=== PATIENT | male | born 1970 | race Caucasian/White ===

== ENCOUNTER 2017-03-04 20:22 | Emergency (ER) | payer SELFPAY ==
[~2017-03-04 20:22] MED LIST: ALPR0.25 PO; ASPI-252 PO; ATOR20TA PO; ATOR40TA PO; Aspirin PO; BISA-42 PO; CELE200C PO; CLOP75TA27 PO; ESOM40CA PO; FENO134C PO; FENO54TA6 PO; GABA-586 PO; LISI10TA2 PO; LISI5TAB PO; Metoprolol Tartrate PO; NAPR220T70 PO; NIAC500T PO; OXYC-250 PO; VARE1TAB5 PO
[2017-03-04 20:34] VITALS: BP 125/82
--- NOTE | 2017-03-04 21:15 | PHYS DOC ---
Past Medical History Past Medical History: Arthritis, CAD, Hypertension, [place] Additional Past Medical Histor: chronic back pain Past Surgical History: Other Additional Past Surgical Histo: back, shoulder, knee Alcohol Use: Rarely Drug Use: None Adult General Chief Complaint Chief Complaint: LOWER BACK PAIN OR INJURY [facility] HPI Patient is a 46 year old male presents to the emergency department stating that he has a history of chronic back pain. He states that today he had attempted to move measured 5 different times with a push mower. Patient states that he has having left lower back pain that radiates over into the hip area. He denies any falls trauma or injuries. He denies any loss of bowel or bladder. Patient states that he is unable to stand effectively or ambulate well with the pain and discomfort. Patient states he has not taken any pain medications today. He states that he has ibuprofen at home although he has had a history of kidney issues and has been taking that very sparingly. Review of Systems Review of Systems Constitutional: Denies fever or chills [] Eyes: Denies change in visual acuity, redness, or eye pain [] HENT: Denies nasal congestion or sore throat [] Respiratory: Denies cough or shortness of breath [] Cardiovascular: No additional information not addressed in HPI [] GI: Denies abdominal pain, nausea, vomiting, bloody stools or diarrhea [] : Denies dysuria or hematuria [] Musculoskeletal: Left lower back pain that radiates into the left hip Integument: Denies rash or skin lesions [] Neurologic: Denies headache, focal weakness or sensory changes [] Current Medications Current Medications Current Medications Medications (Trade) Dose Ordered Sig/[facility] Start Time Stop Time Status Last Admin Dose Admin Fentanyl Citrate (Fentanyl 2ml Vial) 75 mcg 1X ONCE 03/04/17 21:30 03/04/17 21:31 DC 03/04/17 21:32 75 MCG Methylprednisolone Sodium Succinate (Solu-Medrol 125mg Vial) 125 mg 1X ONCE 03/04/17 21:30 03/04/17 21:31 DC 03/04/17 21:34 125 MG Orphenadrine Citrate (Norflex) 60 mg 1X ONCE 03/04/17 21:30 03/04/17 21:31 DC 03/04/17 21:33 60 MG Allergies Allergies Allergies Coded Allergies Type Severity Reaction Last Updated Verified amitriptyline Allergy Severe Anaphylaxis 09/10/14 Yes meperidine Allergy Severe 09/10/14 Yes morphine Allergy Severe Swelling 09/10/14 Yes venom-honey bee Allergy Severe Anaphylaxis 09/10/14 Yes Physical Exam Physical Exam Constitutional: Well developed, well nourished, no acute distress, non-toxic appearance. [] HENT: Normocephalic, atraumatic, bilateral external ears normal, oropharynx moist, no oral exudates, nose normal. [] Eyes: PERRLA, EOMI, conjunctiva normal, no discharge. [] Neck: Normal range of motion, no tenderness, supple, no stridor. [] Cardiovascular:Heart rate regular rhythm, no murmur [] Lungs & Thorax: Bilateral breath sounds clear to auscultation [] Skin: Warm, dry, no erythema, no rash. [] Back: No thoracic or lumbar spine tenderness, no crepitus or deformities or step -offs noted. Patient did have tenderness down to the sacral area as well as over to the paraspinal area there. Patient was very tender on the left lower back area over into the left hip. Patient was able to passively bring his leg up with minimal discomfort noted. Peripheral pulses are 2+ cap refill brisk less than 2 seconds. Extremities: No tenderness, no cyanosis, no clubbing, ROM intact, no edema. [] Neurologic: Alert and oriented X 3, normal motor function, normal sensory function, no focal deficits noted. [] Psychologic: Affect normal, judgement normal, mood normal. [] Current Patient Data Vital Signs Vital Signs Date Time Temp Pulse Resp B/P Pulse Ox O2 Delivery O2 Flow Rate FiO2 03/04/17 20:34 97.7 80 20 125/82 97 Room Air 97.7 EKG EKG [] Radiology/Procedures Radiology/Procedures [] Course & Med Decision Making Course & Med Decision Making Pertinent Labs and Imaging studies reviewed. (See chart for details) She was provided with Solu-Medrol, and fentanyl and Norflex for pain and discomfort. Patient is able to turn himself in the bed easier then upon assessment. Patient was encouraged to follow-up with primary care or his normal back doctor. Patient states that he does not have insurance will provide him to follow-up with the specific the physicians. Recommended patient to have follow- up with pain management. Patient states that he falls to the proximal with having follow-up with any physician. Patient will be provided with hydrocodone at discharge he will be provided with prednisone. We'll also provide the patient with Flexeril. Also recommended packs on 20 minutes off 20 minutes several times a day. Also recommended follow up as mentioned. Since symptoms to return back to emergency department as been provided. Patient agrees with discharge instructions, treatment regimens and follow-up recommendations.. [] Dragon Disclaimer Dragon Disclaimer This electronic medical record was generated, in whole or in part, using a voice recognition dictation system. Departure Departure Impression: Primary Impression: Back pain Disposition: HOME, SELF-CARE Condition: STABLE Referrals: NO PCP (PCP) Patient Instructions: Back Pain, Adult, [id number] Additional Instructions: Activity as tolerated. Medications as prescribed. Hydrocodone will cause drowsiness do not take any be alert and oriented. Flexeril will also cause drowsiness do not take any be alert and oriented. Ice packs on 20 minutes off 20 minutes several times a day. Follow-up with her primary care physician in 3-5 days. Return back to emergency prior signs symptoms of become worse. Scripts Cyclobenzaprine Hcl 10 Mg Tablet1 Tab PO TID PRN PAIN #30 TAB Prov:BASIA DOMINIQUE [employer] INSPECTOR 03/04/17 Prednisone 20 Mg [id number] Mg PO DAILY #10 TAB Prov:BASIA DOMINIQUE APRN 03/04/17 Hydrocodone/Apap 5-325 ([place] 5-325 Tablet)1 Each Tablet1 Tab PO PRN Q6HRS PRN PAIN #20 TAB Prov:BASIA DOMINIQUE APRN 03/04/17 BASIA DOMINIQUE APRN Mar 04, 2017 21:15
[2017-03-04] MEDS ORDERED: FENTANYL PF 100 MCG/2 ML VIAL. IM ONE (21:30)
[2017-03-04] MEDS ORDERED: ORPHENADRINE CITRATE 60 MG/2 ML VIAL. IM ONE (21:30)
[2017-03-04] MEDS ORDERED: methylPREDNISolone SOD SUCC PF 125 MG/2 ML VIAL. IM ONE (21:30)
[2017-03-04] MEDS ORDERED: CYCL10TA2 PO (22:13)
[2017-03-04] MEDS ORDERED: HYDR-971 PO (22:13)
[2017-03-04] MEDS ORDERED: PRED20TA PO (22:13)
== END 2017-03-04 22:31 | disposition home or self-care (01) ==
LOC: ER 20:22
DX: M54.5 Low back pain (principal); M19.90 Unspecified osteoarthritis, unspecified site; I25.10 Atherosclerotic heart disease of native coronary artery without angina pectoris; I10 Essential (primary) hypertension; I25.2 Old myocardial infarction; G89.29 Other chronic pain; Z88.5 Allergy status to narcotic agent; Z91.030 Bee allergy status; Z88.8 Allergy status to other drugs, medicaments and biological substances
CPT/HCPCS: 96372; 99284; J2360; J2930; J3010

== ENCOUNTER 2020-08-13 15:27 | Observation (INO) | payer SELFPAY ==
[~2020-08-13] VITALS: Ht 188 cm; Wt 122.8 kg
[~2020-08-13 15:27] MED LIST changes: -CLOP75TA27 PO; +CLOP75TA57 PO; +CYCL10TA2 PO; -GABA-586 PO; +GABA300C18 PO; +HYDR-3164 PO; -OXYC-250 PO; +OXYC1TAB22 PO; +PRED20TA PO
--- NOTE | 2020-08-13 16:00 | EKG ---
[facility] [address] [place] [address] Test Date: 2020-08-13 Test Time: 15:37:07 Pat Name: SUMAN CACERES Department: Room: Gender: M [employer]: : 1970 Requested By: DHARA MARK Order Number: [id number] Reading MD: Measurements Intervals [place] Rate: 68 P: 27 RI: 164 QRS: -26 QRSD: 110 T: 13 QT: 380 QTc: 409 Interpretive Statements SINUS RHYTHM LEFTWARD AXIS R-S TRANSITION ZONE IN V LEADS DISPLACED TO THE LEFT OTHERWISE NORMAL ECG RI6.02 No previous ECG available for comparison
--- NOTE | 2020-08-13 16:05 | RAD ---
PORTABLE CHEST 1V History: Chest pain Comparison: July 27, 2016 Findings: Single view of the chest is submitted. Pericardial cardiac silhouette is stable, borderline enlarged. There is no dependent pleural fluid, pneumothorax, or infiltrate. There is some right hilar fullness although fairly similar comparing with 2015 exam. Impression: 1. There is no infiltrate or pleural fluid. Electronically signed by: Jayce Biggs MD (08/13/2020 4:02 PM) [id number]
[2020-08-13 16:14] LABS: BASO % 0 % (0-3); EOS # 0.2 x10^3/uL (0.0-0.7); EOS % 5 % (0-3); HEMATOCRIT 35.5 % (39.0-53.0); HEMOGLOBIN 12.1 g/dL (13.0-17.5); LYMPH # 1.2 x10^3/uL (1.0-4.8); LYMPH % 33 % (24-48); MEAN CORPUSCULAR HEMOGLOBIN 33 pg (25-35); MEAN CORPUSCULAR HGB CONC 34 g/dL (31-37); MEAN CORPUSCULAR VOLUME 96 fL (79-100); MONO # 0.4 x10^3/uL (0.0-1.1); MONO % 10 % (0-9); NEUT % 52 % (31-73); PLATELET COUNT 148 x10^3/uL (140-400); RED BLOOD COUNT 3.69 x10^6/uL (4.30-5.70); RED CELL DISTRIBUTION WIDTH 15.6 % (11.5-14.5); WHITE BLOOD COUNT 3.8 x10^3/uL (4.0-11.0)
[2020-08-13 16:26] LABS: CALCIUM 8.5 mg/dL (8.5-10.1); CREATININE 1.5 mg/dL (0.7-1.3); GFR 49.3; POTASSIUM 4.6 mmol/L (3.5-5.1)
[2020-08-13 16:34] LABS: ALBUMIN 3.6 g/dL (3.4-5.0); ALBUMIN/GLOBULIN RATIO 1.3 (1.0-1.7); MAGNESIUM 1.7 mg/dL (1.8-2.4); TOTAL BILIRUBIN 0.4 mg/dL (0.2-1.0); TOTAL PROTEIN 6.4 g/dL (6.4-8.2)
--- NOTE | 2020-08-13 17:39 | PHYS DOC ---
Past Medical History Past Medical History: Arthritis, CAD, Hypertension, [place], Other Additional Past Medical Histor: chronic back pain, CHRONIC SHOULDER PAIN, BURSITIS Past Surgical History: Cholecystectomy, Coronary Bypass Surgery, Other Additional Past Surgical Histo: 'STENT X7',R SHOULDER,LAMINECTOMY L5-S1,R KNEE Smoking Status: Current Every Day Smoker Alcohol Use: Occasionally Additional Information: '2-3 WHISKY DRINKS A NIGHT' Drug Use: None General Adult EDM: Chief Complaint: CHEST PAIN-CARDIAC NATURE HPI: HPI: 50 yo M has medical history of CAD, (reports [address] Deal), htn, hyperlipidemia, COPD and tobacco dependence, on Plavix, presents to the ED with complaints of " feeling in the middle of my chest," described as a cold pressure sensation, for the past week with associated stomach bloating and weight gain of 12 pounds. Patient states he has had multiple heart attacks that usually present like this early on and was advised to come to ed if sxs reoccur. Does not take aspirin of cholesterol medications. No history of DVT or PE. Did not take any nitro. Review of Systems: Review of Systems: Constitutional: Denies fever or chills. [] Eyes: Denies change in visual acuity. [] HENT: Denies nasal congestion or sore throat. [] Respiratory: Denies cough or shortness of breath. [] Cardiovascular: Denies syncope or hemoptysis or edema. [] GI: Denies abdominal pain, nausea, vomiting, bloody stools or diarrhea. [] : Denies dysuria. [] Musculoskeletal: Denies back pain or joint pain. [] Integument: Denies rash. [] Neurologic: Denies headache, focal weakness or sensory changes. [] Endocrine: Denies polyuria or polydipsia. [] Lymphatic: Denies swollen glands. [] Psychiatric: Denies depression or anxiety. [] Heart Score: HEART Score for Chest Pain: HEART Score for Chest Pain Response (Comments) Value History Slighlty/Non-Suspicious 0 ECG Nonspecific Repolarizatio 1 Age >45 - < 65 1 Risk Factors >3 Risk Factors or Hx CAD 2 Troponin < Normal Limit 0 Total 4 Risk Factors: Risk Factors: DM, Current or recent (<one month) smoker, HTN, HLP, family history of CAD, obesity. Risk Scores: Score 0 - 3: 2.5% MACE over next 6 weeks - Discharge Home Score 4 - 6: 20.3% MACE over next 6 weeks - Admit for Clinical Observation Score 7 - 10: 72.7% MACE over next 6 weeks - Early Invasive Strategies Allergies: Allergies: Allergies Coded Allergies Type Severity Reaction Last Updated Verified amitriptyline Allergy Severe Anaphylaxis 09/10/14 Yes meperidine Allergy Severe 09/10/14 Yes morphine Allergy Severe Swelling 09/10/14 Yes venom-honey bee Allergy Severe Anaphylaxis 09/10/14 Yes Physical Exam: PE: Constitutional: Well developed, well nourished, no acute distress, non-toxic appearance. [] HENT: Normocephalic, atraumatic, bilateral external ears normal, oropharynx moist, no oral exudates, nose normal. [] Eyes: PERRLA, EOMI, conjunctiva normal, no discharge. [] Neck: Normal range of motion, no tenderness, supple, no stridor. [] Cardiovascular:Heart rate regular rhythm, no murmur [] Lungs & Thorax: Bilateral breath sounds clear to auscultation [] Abdomen: Bowel sounds normal, soft, no tenderness, no masses, no pulsatile masses. [] Skin: Warm, dry, no erythema, no rash. [] Back: No tenderness, no CVA tenderness. [] Extremities: No tenderness, no cyanosis, no clubbing, ROM intact, no edema. [] Neurologic: Alert and oriented X 3, normal motor function, normal sensory function, no focal deficits noted. [] Psychologic: Affect normal, judgement normal, mood normal. [] Current Patient Data: Labs: Laboratory Tests Test 08/13/20 16:10 White Blood Count 3.8 x10^3/uL (4.0-11.0) L Red Blood Count 3.69 x10^6/uL (4.30-5.70) L Hemoglobin 12.1 g/dL (13.0-17.5) L Hematocrit 35.5 % (39.0-53.0) L Mean Corpuscular Volume 96 fL (79-100) Mean Corpuscular Hemoglobin 33 pg (25-35) Mean Corpuscular Hemoglobin Concent 34 g/dL (31-37) Red Cell Distribution Width 15.6 % (11.5-14.5) H Platelet Count 148 x10^3/uL (140-400) Neutrophils (%) (Auto) 52 % (31-73) Lymphocytes (%) (Auto) 33 % (24-48) Monocytes (%) (Auto) 10 % (0-9) H Eosinophils (%) (Auto) 5 % (0-3) H Basophils (%) (Auto) 0 % (0-3) Neutrophils # (Auto) 2.0 x10^3/uL (1.8-7.7) Lymphocytes # (Auto) 1.2 x10^3/uL (1.0-4.8) Monocytes # (Auto) 0.4 x10^3/uL (0.0-1.1) Eosinophils # (Auto) 0.2 x10^3/uL (0.0-0.7) Basophils # (Auto) 0.0 x10^3/uL (0.0-0.2) Sodium Level 137 mmol/L (136-145) Potassium Level 4.6 mmol/L (3.5-5.1) Chloride Level 102 mmol/L (98-107) Carbon Dioxide Level 28 mmol/L (21-32) Anion Gap 7 (6-14) Blood Urea Nitrogen 17 mg/dL (8-26) Creatinine 1.5 mg/dL (0.7-1.3) H Estimated GFR (Cockcroft-Gault) 49.3 BUN/Creatinine Ratio 11 (6-20) Glucose Level 99 mg/dL (70-99) Calcium Level 8.5 mg/dL (8.5-10.1) Magnesium Level 1.7 mg/dL (1.8-2.4) L Total Bilirubin 0.4 mg/dL (0.2-1.0) Aspartate Amino Transferase (AST) 30 U/L (15-37) Alanine Aminotransferase (ALT) 43 U/L (16-63) Alkaline Phosphatase 78 U/L (46-116) Troponin I Quantitative < 0.017 ng/mL (0.000-0.055) JE-Ztd-I-Type Natriuretic Peptide 290 pg/mL (0-124) H Total Protein 6.4 g/dL (6.4-8.2) Albumin 3.6 g/dL (3.4-5.0) Albumin/Globulin Ratio 1.3 (1.0-1.7) Laboratory Tests 08/13/20 16:10 Laboratory Tests 08/13/20 16:10 Vital Signs: Vital Signs Date Time Temp Pulse Resp B/P (MAP) Pulse Ox O2 Delivery O2 Flow Rate FiO2 08/13/20 17:00 68 16 138/79 (98) 98 Room Air 08/13/20 15:35 98.0 98.0 EKG: EKG: [] Sinus rhythm at 60 bpm, left axis deviation, normal intervals, T wave inversion lead III, no ST elevations or ST depressions, nonpathologic Q waves in 1 and aVL Radiology/Procedures: Radiology/Procedures: []IMAGING REPORT Signed PATIENT: USMAN CACERES ACCOUNT: [id number] : 1970 LOCATION: ER AGE: 50 SEX: M EXAM STATUS: PRE ER ORD. PHYSICIAN: DHARA MARK DO REASON: cp PROCEDURE: PORTABLE CHEST 1V PORTABLE CHEST 1V History: Chest pain Comparison: July 27, 2016 Findings: Single view of the chest is submitted. Pericardial cardiac silhouette is stable, borderline enlarged. There is no dependent pleural fluid, pneumothorax, or infiltrate. There is some right hilar fullness although fairly similar comparing with 2015 exam. Impression: 1. There is no infiltrate or pleural fluid. Electronically signed by: Guzman Haas MD (08/13/2020 4:02 PM) [id number] DICTATED and SIGNED BY: GUZMAN HAAS MD DATE: 08/13/20 1602 Course & Med Decision Making: Course & Med Decision Making Pertinent Labs and Imaging studies reviewed. (See chart for details) Concern for moderate risk chest pain. Cath report reviewed from 2015-single vessel cad. EKG with no active ischemia, troponin unremarkable. Will admit to obs for serial troponins and cardiology evaluation. Patient stable at time of admission and agrees with this plan. I have spoken with the patient and/or caregivers. I have explained the patient's condition, diagnosis and treatment plan based on the information available to me at this time. I have answered the patient's and/or caregivers questions and answered any concerns. The patient and/or caregivers have as good an understanding of the patient's diagnosis, condition and treatment plan as can be expected at this point. The patient has been stabilized within the capability of the emergency department. The patient will be transported for further care and management or will be moved to an observation or inpatient service. I have communicated with the staff or medical practitioner taking over this patient's care. Radha Disclaimer: Radha Disclaimer: This electronic medical record was generated, in whole or in part, using a voice recognition dictation system. Departure Departure Impression: Primary Impression: Chest pain Additional Impression: CKD (chronic kidney disease) Disposition: ADMITTED INPATIENT Admitting Physician: FARSHAD Espinoza) Condition: STABLE Referrals: NO PCP (PCP) Justicifation of Admission Dx: Justifications for Admission: Justification of Admission Dx: Yes Angina: [facility] DHARA MARK DO Aug 13, 2020 17:39
--- NOTE | 2020-08-13 18:17 | PDOC1 ---
History and Physical Date of Admission Date of Admission DATE: 08/13/20 TIME: 18:17 Identification/Chief Complaint Chief Complaint Chest pain Source Source: Patient History of Present Illness History of Present Illness Mr Jhaveri is a 50yo M w PMHx bilateral shoulder arthritis, CAD s/p NICOLE x4, chronic back pain, HTN, smoker who presents to ED with multiple complaints. He notes a cool "Hose clamping feeling" pressure in his chest for the past week. It does not radiate, rated 4/10, constant with associated headache and nausea and lower extremity edema and bilateral foot pain. He also notes BP 178/101 every day this week, just had his lisinopril and metoprolol and plavix refilled. He also c/o depressed mood over the of his October 2019 and subsequent loss of his home, he lives in a trailer on his nephew's property. He additionally complains of weight gain from 220# to 275# over the past 10 months and is drinking more heavily and continues to smoke. Patient states he has had multiple heart attacks that usually present like this early on. Does not take aspirin of cholesterol medications, notes statin intolerance previously. No history of DVT or PE. Did not take any nitro. EKG Sinus rhythm at 60 bpm, left axis deviation, normal intervals, T wave inversion lead III, no ST elevations or ST depressions, nonpathologic Q waves in 1 and aVL CXR clear Cath report reviewed from 2015-single vessel cad. EKG with no active ischemia, troponin unremarkable. Labs with Cr 1.5, troponin 0, BNP 290. Admitted for further care Past Medical History Cardiovascular: CAD, Hyperlipidemia Pulmonary: No pertinent hx CENTRAL NERVOUS SYSTEM: Other GI: No pertinent hx Heme/Onc: No pertinent hx Hepatobiliary: No pertinent hx Psych: No pertinent hx Musculoskeletal: low back pain Rheumatologic: No pertinent hx Infectious disease: No pertinent hx Renal/: No pertinent hx Endocrine: No pertinent hx Past Surgical History Past Surgical History: Cholecystectomy, Other Family History Family History: Cancer, Heart Disease, Other Social History Smoke: 1 pack per day ALCOHOL: heavy Drugs: None Current Problem List Problem List Problems Medical Problems: (1) Chest pain Status: Acute Current Medications Current Medications Active Scripts Active Cyclobenzaprine Hcl 10 Mg Tablet 1 Tab PO TID PRN Prednisone 20 Mg Tablet 40 Mg PO DAILY [place] 5-325 Tablet (Acetaminophen/Hydrocodone Bitart) 1 Each Tablet 1 Tab PO PRN Q6HRS PRN Xanax (Alprazolam) 0.25 Mg Tablet 1 Tab PO DAILY Percocet 10-325 Mg Tablet (Oxycodone/Acetaminophen) 1 Each Tablet 1 Tab PO Q4- 6HRS Plavix (Clopidogrel Bisulfate) 75 Mg Tablet 75 Mg PO DAILYWBKFT Lipitor (Atorvastatin Calcium) 40 Mg Tablet 40 Mg PO QHS Ecotrin (Aspirin) 325 Mg Tablet.dr 325 Mg PO DAILYWBKFT [Metoprolol Tartrate] 25 MG Tablet 12.5 Mg PO BID Reported Fenofibrate (Fenofibrate,Micronized) 134 Mg Capsule 67 Cap PO DAILY Lisinopril 10 Mg Tablet 10 Mg PO DAILY Dulcolax (Bisacodyl) 5 Mg Tablet.dr 1 Tab PO BID PRN Percocet 10-325 Mg Tablet (Oxycodone/Acetaminophen) 1 Each Tablet 1 Tab PO QID Gabapentin 300 Mg Capsule 1 Cap PO TID Allergies Allergies: Coded Allergies: amitriptyline (Verified Allergy, Severe, Anaphylaxis, 09/10/14) meperidine (Verified Allergy, Severe, 09/10/14) severe vomiting and dehydration requiring hospitalization morphine (Verified Allergy, Severe, Swelling, 09/10/14) severe generalized swelling, vomiting- TOLERATES OXYCODONE venom-honey bee (Verified Allergy, Severe, Anaphylaxis, 09/10/14) ROS General: YES: Fatigue, Malaise; No: Chills, Night Sweats, Appetite, Other PSYCHOLOGICAL ROS: YES: Anxiety; No: Behavioral Disorder, Concentration difficultie, Decreased libido, Depression, Disorientation, Hallucinations, Hostility, Irritablity, Memory difficulties, Mood Swings, Obsessive thoughts, Physical abuse, Sexual abuse, Sleep disturbances, Suicidal ideation, Other Eyes: No Blurry vision, No Decreased vision, No Double vision, No Dry eyes, No Excessive tearing, No Eye Pain, No Itchy Eyes, No Loss of vision, No Photophobia, No Scotomata, No Uses contacts, No Uses glasses, No Other HEENT: YES: Heacaches; No: Visual Changes, Hearing change, Nasal congestion, Nasal discharge, Oral lesions, Sinus pain, Sore Throat, Epistaxis, Sneezing, Snoring, Tinnitus, Vertigo, Vocal changes, Other ALLERGY AND IMMUNOLOGY: No: Hives, Insect Bite Sensitivity, Itchy/Watery Eyes, Nasal Congestion, Post Nasal Drip, Seasonal Allergies, Other Hematological and Lymphatic: No: Bleeding Problems, Blood Clots, Blood Transfusions, Brusing, Night Sweats, Pallor, Swollen Lymph Nodes, Other ENDOCRINE: No: Breast Changes, Galactorrhea, Hair Pattern Changes, Hot Flashes, Malaise/lethargy, Mood Swings, Palpitations, Polydipsia/polyuria, Skin Changes, Temperature Intolerance, Unexpected Weight Changes, Other Breast: No New/Changing Breast Lumps, No Nipple changes, No Nipple discharge, No Other Respiratory: YES: Shortness of breath; No: Cough, Hemoptysis, Orthopnea, Pleuritic Pain, SOB with excertion, Sputum Changes, Stridor, Tachypnea, Wheezing, Other Cardiovascular: yes Chest Pain; No Palpitations, No Orthopnea, No Paroxysmal Noc. Dyspnea, No Edema, No Lt Headedness, No Other Gastrointestinal: Yes Nausea; No Vomiting, No Abdominal Pain, No Diarrhea, No Constipation, No Melena, No Hematochezia, No Other Genitourinary: No Dysuria, No Frequency, No Incontinence, No Hematuria, No Retention, No Discharge, No Urgency, No Pain, No Flank Pain, No Other, No , No , No , No , No , No , No Musculoskeletal: Yes Joint Pain, Yes Joint Stiffness, Yes Muscle Pain; No Gait Disturbance, No Joint Swelling, No Muscular Weakness, No Pain In:, No Swelling In:, No Other Neurological: No Behavorial Changes, No Bowel/Bladder ControlChng, No Confusion, No Dizziness, No Gait Disturbance, No Headaches, No Impaired Coord/balance, No Memory Loss, No Numbness/Tingling, No Seizures, No Speech Problems, No Tremors, No Visual Changes, No Weakness, No Other Skin: No Dry Skin, No Eczema, No Hair Changes, No Lumps, No Mole Changes, No Mottling, No Nail Changes, No Pruritus, No Rash, No Skin Lesion Changes, No Other, No Acne Physical Exam General: Alert, Oriented X3, Cooperative, moderate distress HEENT: Atraumatic, PERRLA, EOMI, Mucous membr. moist/pink Lungs: Clear to auscultation, Normal air movement Heart: S1S2, RRR, no thrills, no rubs, no gallops, no murmurs Abdomen: Normal bowel sounds, Soft, No tenderness, No hepatosplenomegaly, No masses Rectal Exam: not examined Extremities: No clubbing, No cyanosis, No edema, Normal pulses, Other (right a nterior shoulder tenderness, bilateral ankle tenderness, ruptured left biceps long head) Skin: No rashes, No breakdown, No significant lesion Neuro: Normal gait, Normal speech, Strength at 5/5 X4 ext, Normal tone, Sensation intact, Cranial nerves 3-12 NL, Reflexes 2+ Psych/Mental Status: Mental status NL, Mood NL Vitals Vitals Vital Signs Date Time Temp Pulse Resp B/P (MAP) Pulse Ox O2 Delivery O2 Flow Rate FiO2 08/13/20 17:00 68 16 138/79 (98) 98 Room Air 08/13/20 15:35 98.0 98.0 Labs Labs Laboratory Tests Test 08/13/20 16:10 White Blood Count 3.8 x10^3/uL (4.0-11.0) Red Blood Count 3.69 x10^6/uL (4.30-5.70) Hemoglobin 12.1 g/dL (13.0-17.5) Hematocrit 35.5 % (39.0-53.0) Mean Corpuscular Volume 96 fL (79-100) Mean Corpuscular Hemoglobin 33 pg (25-35) Mean Corpuscular Hemoglobin Concent 34 g/dL (31-37) Red Cell Distribution Width 15.6 % (11.5-14.5) Platelet Count 148 x10^3/uL (140-400) Neutrophils (%) (Auto) 52 % (31-73) Lymphocytes (%) (Auto) 33 % (24-48) Monocytes (%) (Auto) 10 % (0-9) Eosinophils (%) (Auto) 5 % (0-3) Basophils (%) (Auto) 0 % (0-3) Neutrophils # (Auto) 2.0 x10^3/uL (1.8-7.7) Lymphocytes # (Auto) 1.2 x10^3/uL (1.0-4.8) Monocytes # (Auto) 0.4 x10^3/uL (0.0-1.1) Eosinophils # (Auto) 0.2 x10^3/uL (0.0-0.7) Basophils # (Auto) 0.0 x10^3/uL (0.0-0.2) Sodium Level 137 mmol/L (136-145) Potassium Level 4.6 mmol/L (3.5-5.1) Chloride Level 102 mmol/L (98-107) Carbon Dioxide Level 28 mmol/L (21-32) Anion Gap 7 (6-14) Blood Urea Nitrogen 17 mg/dL (8-26) Creatinine 1.5 mg/dL (0.7-1.3) Estimated GFR (Cockcroft-Gault) 49.3 BUN/Creatinine Ratio 11 (6-20) Glucose Level 99 mg/dL (70-99) Calcium Level 8.5 mg/dL (8.5-10.1) Magnesium Level 1.7 mg/dL (1.8-2.4) Total Bilirubin 0.4 mg/dL (0.2-1.0) Aspartate Amino Transf (AST/SGOT) 30 U/L (15-37) Alanine Aminotransferase (ALT/SGPT) 43 U/L (16-63) Alkaline Phosphatase 78 U/L (46-116) Troponin I Quantitative < 0.017 ng/mL (0.000-0.055) TW-Gll-M-Type Natriuretic Peptide 290 pg/mL (0-124) Total Protein 6.4 g/dL (6.4-8.2) Albumin 3.6 g/dL (3.4-5.0) Albumin/Globulin Ratio 1.3 (1.0-1.7) Laboratory Tests Test 08/13/20 16:10 White Blood Count 3.8 x10^3/uL (4.0-11.0) Red Blood Count 3.69 x10^6/uL (4.30-5.70) Hemoglobin 12.1 g/dL (13.0-17.5) Hematocrit 35.5 % (39.0-53.0) Mean Corpuscular Volume 96 fL (79-100) Mean Corpuscular Hemoglobin 33 pg (25-35) Mean Corpuscular Hemoglobin Concent 34 g/dL (31-37) Red Cell Distribution Width 15.6 % (11.5-14.5) Platelet Count 148 x10^3/uL (140-400) Neutrophils (%) (Auto) 52 % (31-73) Lymphocytes (%) (Auto) 33 % (24-48) Monocytes (%) (Auto) 10 % (0-9) Eosinophils (%) (Auto) 5 % (0-3) Basophils (%) (Auto) 0 % (0-3) Neutrophils # (Auto) 2.0 x10^3/uL (1.8-7.7) Lymphocytes # (Auto) 1.2 x10^3/uL (1.0-4.8) Monocytes # (Auto) 0.4 x10^3/uL (0.0-1.1) Eosinophils # (Auto) 0.2 x10^3/uL (0.0-0.7) Basophils # (Auto) 0.0 x10^3/uL (0.0-0.2) Sodium Level 137 mmol/L (136-145) Potassium Level 4.6 mmol/L (3.5-5.1) Chloride Level 102 mmol/L (98-107) Carbon Dioxide Level 28 mmol/L (21-32) Anion Gap 7 (6-14) Blood Urea Nitrogen 17 mg/dL (8-26) Creatinine 1.5 mg/dL (0.7-1.3) Estimated GFR (Cockcroft-Gault) 49.3 BUN/Creatinine Ratio 11 (6-20) Glucose Level 99 mg/dL (70-99) Calcium Level 8.5 mg/dL (8.5-10.1) Magnesium Level 1.7 mg/dL (1.8-2.4) Total Bilirubin 0.4 mg/dL (0.2-1.0) Aspartate Amino Transf (AST/SGOT) 30 U/L (15-37) Alanine Aminotransferase (ALT/SGPT) 43 U/L (16-63) Alkaline Phosphatase 78 U/L (46-116) Troponin I Quantitative < 0.017 ng/mL (0.000-0.055) CP-Tdi-U-Type Natriuretic Peptide 290 pg/mL (0-124) Total Protein 6.4 g/dL (6.4-8.2) Albumin 3.6 g/dL (3.4-5.0) Albumin/Globulin Ratio 1.3 (1.0-1.7) Images Images CXR: Pericardial cardiac silhouette is stable, borderline enlarged. There is no dependent pleural fluid, pneumothorax, or infiltrate. There is some right hilar fullness although fairly similar comparing with 2015 exam. Impression: 1. There is no infiltrate or pleural fluid. VTE Prophylaxis Ordered VTE Prophylaxis Devices: Yes VTE Pharmacological Prophylaxi: Yes Assessment/Plan Assessment/Plan A/P: Chest pain - worsening symptoms, will trend troponins, telemetry. Consult cardiology Hypertensive urgency - with chest pain, will start IV prn hydralazine, metoprolol. Hold lisinopril for VIVEK CAD - s/p PCI/NICOLE RCA 2013, PCI/NICOLE to LAD and PTCA to Dx 03/2015, then 07/2015 PCI/NICOLE to RCA. Cont plavix, asa, BB, cannot tolerate statin. Smoking cessation counseled Ischemic cardiomyopathy - will likely need repeat TTE HLD - statin intolerant. He would benefit from a PCSK-9 inhibitor Severe left shoulder pain - with torn biceps tendon Right shoulder pain - with likely rotator cuff tear and OA, will give topical voltaren VIVEK - Cr at 1.5, advised to stop NSAIDs. This likely vasomotor nephropathy, will hydrate, hold lisinopril GERD - Cont protonix Tobaccoism: continue to smoke tobacco. Smoking cessation emphasized FEN - Cardiac diet PPX - lovenox FULL CODE Dispo - observation for chest pain Justifications for Admission Other Justification CANDY BARRY MD Aug 13, 2020 18:17
[2020-08-13] MEDS ORDERED: MAGNESIUM SULFATE 1GM 100 ML IV ONE (18:30)
[2020-08-13] MEDS ORDERED: HYDROcodone/APAP 5/325MG 1 TAB TABLET PO PRN (19:15)
[2020-08-13] MEDS ORDERED: PANTOPRAZOLE 40 MG TABLET.DR. PO ONE (19:15)
[2020-08-13] MEDS ORDERED: BISACODYL 5 MG TABLET.DR. PO PRN (19:15)
[2020-08-13] MEDS: hydrALAZINE 20 MG/ML VIAL. IVP ONE ×2 (19:15→20:23)
[2020-08-13] MEDS ORDERED: ACETAMINOPHEN 325 MG TABLET. PO PRN (22:00)
[2020-08-13] MEDS ORDERED: ONDANSETRON PF 4 MG/2 ML VIAL. IVP PRN (22:00)
[2020-08-13] MEDS: METOPROLOL TART IMMED RELEASE 25 MG TABLET. PO SCH (22:18)
[2020-08-13] MEDS: GABAPENTIN 300 MG CAPSULE. PO SCH (22:18)
[2020-08-13] MEDS: DICLOFENAC SODIUM 1% TOPICAL GEL 100GM TUBE. TP SCH (22:49)
[2020-08-13] MEDS: NICOTINE 21MG PATCH. TD SCH (22:49)
[2020-08-13 23:00] VITALS: BP 168/98
[2020-08-13] MEDS: hydrALAZINE 20 MG/ML VIAL. IVP PRN (23:06)
[2020-08-14] MEDS: HYDROcodone/APAP 5/325MG 1 TAB TABLET PO PRN ×4 (02:20→12:36)
[2020-08-14 03:00] VITALS: BP 166/96
[2020-08-14] MEDS: hydrALAZINE 20 MG/ML VIAL. IVP PRN (05:11)
[2020-08-14 05:45] VITALS: BP 173/106
[2020-08-14 07:00] VITALS: BP 175/88
[2020-08-14] MEDS ORDERED: ASPIRIN ENTERIC COATED 325 MG TABLET.DR. PO SCH (08:00)
[2020-08-14] MEDS ORDERED: CLOPIDOGREL BISULFATE 75 MG TABLET PO SCH (08:00)
--- NOTE | 2020-08-14 08:42 | PDOC ---
[employer] PROGRESS NOTE Date of Service DOS: DATE: 08/14/20 TIME: 08:42 Chief Complaint Chief Complaint A/P: Chest pain - negative EKG, negative troponins, telemetry. Consult cardiology Hypertensive urgency - with chest pain, IV prn hydralazine, metoprolol. Hold lisinopril for VIVEK. Change to coreg and amlodipine. Stop aleve/ibuprofen CAD - s/p PCI/NICOLE RCA 2013, PCI/NICOLE to LAD and PTCA to Dx 03/2015, then 07/2015 PCI/NICOLE to RCA. Cont plavix, asa, BB, cannot tolerate statin. Smoking cessation counseled Ischemic cardiomyopathy - will likely need repeat TTE HLD - statin intolerant. He would benefit from a PCSK-9 inhibitor Severe left shoulder pain - with torn biceps tendon Right shoulder pain - with likely rotator cuff tear and OA, will give topical voltaren, low dose celebrex with caution VIVEK - Cr at 1.5, advised to stop NSAIDs. This likely vasomotor nephropathy, will hydrate, hold lisinopril GERD - Cont protonix Tobaccoism: continue to smoke tobacco. Smoking cessation emphasized FEN - Cardiac diet PPX - lovenox FULL CODE Dispo - observation for chest pain History of Present Illness History of Present Illness Mr Jhaveri is a 50yo M w PMHx bilateral shoulder arthritis, CAD s/p NICOLE x4, chronic back pain, HTN, smoker who presents to ED with multiple complaints. He notes a cool "Hose clamping feeling" pressure in his chest for the past week. It does not radiate, rated 4/10, constant with associated headache and nausea and lower extremity edema and bilateral foot pain. He also notes BP 178/101 every day this week, just had his lisinopril and metoprolol and plavix refilled. He also c/o depressed mood over the of his October 2019 and subsequent loss of his home, he lives in a trailer on his nephew's property. He additionally complains of weight gain from 220# to 275# over the past 10 months and is drinking more heavily and continues to smoke. Patient states he has had multiple heart attacks that usually present like this early on. Does not take aspirin of cholesterol medications, notes statin intolerance previously. No history of DVT or PE. Did not take any nitro. EKG Sinus rhythm at 60 bpm, left axis deviation, normal intervals, T wave inversion lead III, no ST elevations or ST depressions, nonpathologic Q waves in 1 and aVL CXR clear Cath report reviewed from 2015-single vessel cad. EKG with no active ischemia, troponin unremarkable. Labs with Cr 1.5, troponin 0, BNP 290. Admitted for further care Troponins trended downward. His headache and chest symptoms improved slightly with blood pressure systolic in the 140s. Amlodipine and carvedilol on discharge. Has outpatient follow-up with cardiology as he has disability approval as of 07/28/2020 and will have insurance soon. Vitals/I&O Vitals/I&O: Vital Signs Date Time Temp Pulse Resp B/P (MAP) Pulse Ox O2 Delivery O2 Flow Rate FiO2 08/14/20 06:24 16 97 Room Air 08/14/20 05:45 58 173/106 (128) 08/14/20 03:00 98.4 2.0 98.4 I & O 08/13/20 08/13/20 08/14/20 15:00 23:00 07:00 Intake Total 1050 ml Output Total 1750 ml Balance -700 ml Physical Exam General: Alert, Oriented X3, Cooperative, moderate distress Lungs: Clear Abdomen: Normal bowel sounds, Soft, No tenderness, No hepatosplenomegaly, No masses Extremities: No clubbing, No cyanosis, No edema, Normal pulses, Other Skin: No rashes, No breakdown, No significant lesion Labs Labs: Laboratory Tests Test 08/13/20 16:10 08/14/20 01:45 White Blood Count 3.8 x10^3/uL (4.0-11.0) Red Blood Count 3.69 x10^6/uL (4.30-5.70) Hemoglobin 12.1 g/dL (13.0-17.5) Hematocrit 35.5 % (39.0-53.0) Mean Corpuscular Volume 96 fL (79-100) Mean Corpuscular Hemoglobin 33 pg (25-35) Mean Corpuscular Hemoglobin Concent 34 g/dL (31-37) Red Cell Distribution Width 15.6 % (11.5-14.5) Platelet Count 148 x10^3/uL (140-400) Neutrophils (%) (Auto) 52 % (31-73) Lymphocytes (%) (Auto) 33 % (24-48) Monocytes (%) (Auto) 10 % (0-9) Eosinophils (%) (Auto) 5 % (0-3) Basophils (%) (Auto) 0 % (0-3) Neutrophils # (Auto) 2.0 x10^3/uL (1.8-7.7) Lymphocytes # (Auto) 1.2 x10^3/uL (1.0-4.8) Monocytes # (Auto) 0.4 x10^3/uL (0.0-1.1) Eosinophils # (Auto) 0.2 x10^3/uL (0.0-0.7) Basophils # (Auto) 0.0 x10^3/uL (0.0-0.2) Sodium Level 137 mmol/L (136-145) Potassium Level 4.6 mmol/L (3.5-5.1) Chloride Level 102 mmol/L (98-107) Carbon Dioxide Level 28 mmol/L (21-32) Anion Gap 7 (6-14) Blood Urea Nitrogen 17 mg/dL (8-26) Creatinine 1.5 mg/dL (0.7-1.3) Estimated GFR (Cockcroft-Gault) 49.3 BUN/Creatinine Ratio 11 (6-20) Glucose Level 99 mg/dL (70-99) Calcium Level 8.5 mg/dL (8.5-10.1) Magnesium Level 1.7 mg/dL (1.8-2.4) Total Bilirubin 0.4 mg/dL (0.2-1.0) Aspartate Amino Transf (AST/SGOT) 30 U/L (15-37) Alanine Aminotransferase (ALT/SGPT) 43 U/L (16-63) Alkaline Phosphatase 78 U/L (46-116) Troponin I Quantitative < 0.017 ng/mL (0.000-0.055) < 0.017 ng/mL (0.000-0.055) VP-Muz-Q-Type Natriuretic Peptide 290 pg/mL (0-124) Total Protein 6.4 g/dL (6.4-8.2) Albumin 3.6 g/dL (3.4-5.0) Albumin/Globulin Ratio 1.3 (1.0-1.7) Assessment and Plan Assessmemt and Plan Problems Medical Problems: (1) Chest pain Status: Acute (2) CKD (chronic kidney disease) Status: Acute Comment Review of Relevant I have reviewed the following items william (where applicable) has been applied. Medications: Current Medications Medications (Trade) Dose Ordered Sig/Laura Route PRN Reason Start Time Stop Time Status Last Admin Dose Admin Magnesium Sulfate/ Dextrose 100 ml @ 100 mls/hr 1X ONCE IV 08/13/20 18:30 08/13/20 19:29 DC 08/13/20 19:31 Gabapentin (Neurontin) 300 mg TID PO 08/13/20 21:00 08/13/20 22:18 Acetaminophen/ Hydrocodone Bitart (Lortab 5/325) 1 tab PRN Q6HRS PRN PO PAIN 08/13/20 19:15 08/14/20 02:02 DC 08/13/20 21:22 Metoprolol Tartrate (Lopressor) 12.5 mg BID PO 08/13/20 21:00 08/13/20 22:18 Pantoprazole Sodium (Protonix) 40 mg 1X ONCE PO 08/13/20 19:15 08/13/20 19:20 DC 08/13/20 20:23 Diclofenac Sodium (Voltaren) 1 marck BID TP 08/13/20 22:00 08/13/20 22:49 Acetaminophen (Tylenol) 650 mg PRN Q6HRS PRN PO pain/temp 08/13/20 22:00 08/14/20 00:33 Hydralazine HCl (Apresoline Inj) 10 mg PRN Q6HRS PRN IVP ELEVATED BP, SEE COMMENTS 08/13/20 22:45 08/14/20 05:11 Nicotine (Nicoderm Cq 21mg) 1 patch DAILY TD 08/13/20 22:45 08/13/20 22:49 Acetaminophen/ Hydrocodone Bitart (Lortab 5/325) 1 tab PRN Q3HRS PRN PO PAIN 08/14/20 02:15 08/14/20 05:24 Justifications for Admission Other Justification CANDY BARRY MD Aug 14, 2020 08:42
[2020-08-14] MEDS ORDERED: FLU VACC QS 2020-21(6MOS+)/PF 0.5 ML SYRINGE. VAX IM ONE (09:00)
[2020-08-14] MEDS: GABAPENTIN 300 MG CAPSULE. PO SCH ×2 (09:02→14:10)
[2020-08-14] MEDS: NICOTINE 21MG PATCH. TD SCH (09:02)
[2020-08-14] MEDS: METOPROLOL TART IMMED RELEASE 25 MG TABLET. PO SCH (09:03)
[2020-08-14] MEDS: DICLOFENAC SODIUM 1% TOPICAL GEL 100GM TUBE. TP SCH (09:07)
--- NOTE | 2020-08-14 10:13 | PDOC2 ---
MARYCRUZ LEE SORTER PRICER 08/14/20 1012: CARDIAC CONSULT DATE OF CONSULT Date of Consult DATE: 08/14/20 TIME: 09:37 REASON FOR CONSULT Reason for Consult: Chest pain REFERRING PHYSICIAN Referring Physician: [facility] SOURCE Source: Chart review, Patient HISTORY OF PRESENT ILLNESS HISTORY OF PRESENT ILLNESS This is a pleasant 50 yo male admitted for complains of chest pain. Feeling like cold sensation on his chest. Reports also that he has been having ONEILL and also some nausea. No dizziness but has been having this symptoms in the last 2 weeks. He has had multiple stents in the past with last one in 12/2018 at [facility]. He has not followed in our office because he lost his insurance and has been approved for disability just recently. He has not been taking ASA since his NICOLE placed unknown vessel last yr but has been taking plavix, metoprolol and lisinopril. His BP has been elevated lately as well with BP noting it at 180s/110s range. He has gained about 55 pounds in the last yr. His just 11/21/2019 but he is not depressed. His mobility is limited due to OA. He still smokes tobacco but no ETOH. He could not take statin due to significant intolerance. PAST MEDICAL HISTORY Past Medical History Cardiovascular: CAD, MD (STEMI), HTN, HLP Pulmonary: Asthma CENTRAL NERVOUS SYSTEM: Other (No pertinent history) GI: GERD Hepatobiliary: No pertinent hx Psych: anxiety Musculoskeletal: Osteoarthritis, left shoulder injury, low back pain Rheumatologic: No pertinent hx Infectious disease: No pertinent hx ENT: No pertinent hx Renal/: No pertinent hx Endocrine: No pertinent hx Dermatology: No pertinent hx PAST SURGICAL HISTORY Past Surgical History right shoulder surgery; right knee. PCI/NICOLE x 2 episodes 2013 and 2015, 2016, cholecystectomy, back surgery FAMILY HISTORY Family History Coronary Artery Disease (father in his 40s) SOCIAL HISTORY Social History Smoke: <1 pack per day ALCOHOL: none Drugs: None Lives: with Family Domestic Violence: Neg CURRENT MEDICATIONS CURRENT MEDICATIONS Current Medications Medications (Trade) Dose Ordered Sig/Laura Route PRN Reason Start Time Stop Time Status Last Admin Dose Admin Magnesium Sulfate/ Dextrose 100 ml @ 100 mls/hr 1X ONCE IV 08/13/20 18:30 08/13/20 19:29 DC 08/13/20 19:31 Aspirin (Ecotrin) 325 mg DAILYWBKFT PO 08/14/20 08:00 08/14/20 09:02 Clopidogrel Bisulfate (Plavix) 75 mg DAILYWBKFT PO 08/14/20 08:00 08/14/20 09:07 Gabapentin (Neurontin) 300 mg TID PO 08/13/20 21:00 08/14/20 09:02 Acetaminophen/ Hydrocodone Bitart (Lortab 5/325) 1 tab PRN Q6HRS PRN PO PAIN 08/13/20 19:15 08/14/20 02:02 DC 08/13/20 21:22 Metoprolol Tartrate (Lopressor) 12.5 mg BID PO 08/13/20 21:00 08/14/20 09:03 Pantoprazole Sodium (Protonix) 40 mg 1X ONCE PO 08/13/20 19:15 08/13/20 19:20 DC 08/13/20 20:23 Diclofenac Sodium (Voltaren) 1 marck BID TP 08/13/20 22:00 08/14/20 09:07 Acetaminophen (Tylenol) 650 mg PRN Q6HRS PRN PO MILD PAIN/ TEMP 08/13/20 22:00 08/14/20 00:33 Hydralazine HCl (Apresoline Inj) 10 mg PRN Q6HRS PRN IVP ELEVATED BP, SEE COMMENTS 08/13/20 22:45 08/14/20 05:11 Nicotine (Nicoderm Cq 21mg) 1 patch DAILY TD 08/13/20 22:45 08/14/20 09:02 Acetaminophen/ Hydrocodone Bitart (Lortab 5/325) 1 tab PRN Q3HRS PRN PO MODERATE-SEVERE PAIN 08/14/20 02:15 08/14/20 09:07 ALLERGIES ALLERGIES: Coded Allergies: amitriptyline (Verified Allergy, Severe, Anaphylaxis, 09/10/14) meperidine (Verified Allergy, Severe, 09/10/14) severe vomiting and dehydration requiring hospitalization morphine (Verified Allergy, Severe, Swelling, 09/10/14) severe generalized swelling, vomiting- TOLERATES OXYCODONE venom-honey bee (Verified Allergy, Severe, Anaphylaxis, 09/10/14) Fukfqzs-Gkb-Tzs Reductase Inhibitor (Verified Allergy, Unknown, 08/13/20) ROS Review of System 14 point ROS evaluated with pertinent positives noted per HPI PHYSICAL EXAM General: Alert, Oriented X3, Cooperative, No acute distress HEENT: Atraumatic, Mucous membr. moist/pink Lungs: Clear to auscultation, Normal air movement Heart: Regular rate (SR no ectopies), Normal S1, Normal S2, No murmurs Abdomen: Soft, No tenderness, Other (obese) Extremities: No cyanosis, No edema Skin: No breakdown, No significant lesion Neuro: Normal speech, Sensation intact Psych/Mental Status: Mental status NL, Mood NL MUSCULOSKELETAL: Osteoarthritic changes both hands VITALS/I&O VITALS/I&O: Vital Signs Date Time Temp Pulse Resp B/P (MAP) Pulse Ox O2 Delivery O2 Flow Rate FiO2 08/14/20 09:07 22 97 Room Air 08/14/20 09:03 64 175/88 08/14/20 07:00 98.2 98.2 08/14/20 03:00 2.0 I & O 08/13/20 08/13/20 08/14/20 15:00 23:00 07:00 Intake Total 1050 ml Output Total 1750 ml Balance -700 ml LABS Lab: Laboratory Tests Test 08/13/20 16:10 08/14/20 01:45 White Blood Count 3.8 x10^3/uL (4.0-11.0) L Red Blood Count 3.69 x10^6/uL (4.30-5.70) L Hemoglobin 12.1 g/dL (13.0-17.5) L Hematocrit 35.5 % (39.0-53.0) L Mean Corpuscular Volume 96 fL (79-100) Mean Corpuscular Hemoglobin 33 pg (25-35) Mean Corpuscular Hemoglobin Concent 34 g/dL (31-37) Red Cell Distribution Width 15.6 % (11.5-14.5) H Platelet Count 148 x10^3/uL (140-400) Neutrophils (%) (Auto) 52 % (31-73) Lymphocytes (%) (Auto) 33 % (24-48) Monocytes (%) (Auto) 10 % (0-9) H Eosinophils (%) (Auto) 5 % (0-3) H Basophils (%) (Auto) 0 % (0-3) Neutrophils # (Auto) 2.0 x10^3/uL (1.8-7.7) Lymphocytes # (Auto) 1.2 x10^3/uL (1.0-4.8) Monocytes # (Auto) 0.4 x10^3/uL (0.0-1.1) Eosinophils # (Auto) 0.2 x10^3/uL (0.0-0.7) Basophils # (Auto) 0.0 x10^3/uL (0.0-0.2) Sodium Level 137 mmol/L (136-145) Potassium Level 4.6 mmol/L (3.5-5.1) Chloride Level 102 mmol/L (98-107) Carbon Dioxide Level 28 mmol/L (21-32) Anion Gap 7 (6-14) Blood Urea Nitrogen 17 mg/dL (8-26) Creatinine 1.5 mg/dL (0.7-1.3) H Estimated GFR (Cockcroft-Gault) 49.3 BUN/Creatinine Ratio 11 (6-20) Glucose Level 99 mg/dL (70-99) Calcium Level 8.5 mg/dL (8.5-10.1) Magnesium Level 1.7 mg/dL (1.8-2.4) L Total Bilirubin 0.4 mg/dL (0.2-1.0) Aspartate Amino Transferase (AST) 30 U/L (15-37) Alanine Aminotransferase (ALT) 43 U/L (16-63) Alkaline Phosphatase 78 U/L (46-116) Troponin I Quantitative < 0.017 ng/mL (0.000-0.055) < 0.017 ng/mL (0.000-0.055) SK-Nqt-D-Type Natriuretic Peptide 290 pg/mL (0-124) H Total Protein 6.4 g/dL (6.4-8.2) Albumin 3.6 g/dL (3.4-5.0) Albumin/Globulin Ratio 1.3 (1.0-1.7) Laboratory Tests 08/13/20 16:10 Laboratory Tests 08/13/20 16:10 ECHOCARDIOGRAM ECHOCARDIOGRAM <Conclusion> The left ventricle is normal size. Left ventricle systolic function is low normal. The Ejection Fraction is estimated at 50%. There is borderline global hypokinesis of the left ventricle. There is no significant aortic valvular stenosis. Doppler and Color Flow revealed no significant aortic regurgitation. Doppler and Color Flow revealed no mitral valve regurgitation noted. Doppler and Color Flow revealed trace tricuspid regurgitation. The PA pressure was estimated at 33 mmHg. DATE: 07/20/16 1617 HEART CATH HEART CATH Conclusion 1. Three vessel coronary artery disease. 2. Patent LAD stent. 3. Successful PCI of the RCA CHAIN DYER as described above. Recommendations Smoking Cessation Cardiac Rehabilitation Referral ASA 81mg daily Prasugrel 10mg daily x 30 days, then transition to Plavix therapy for 1 full year. Continue statin therapy. DATE: 07/21/16 1436 Conclusion 1. Severe single-vessel coronary artery disease with 90% stenosis involving the mid to distal segment of right coronary artery. The previously placed stent in the proximal and mid segments of the right coronary artery and the midsegment of the left anterior descending artery of widely patent. The diagonal branch showed 80% stenosis in the ostial segment. Due to the small caliber nature of this vessel, this can be managed medically. 2. Successful PCI/drug eluting stent placement to the right coronary artery. 3. Diaphragmatic wall hypokinesis with ejection fraction estimated at 55%. 4. No significant mitral regurgitation or aortic stenosis. Recommendations 1. Aspirin 325 mg daily 2. Plavix 75 mg daily for preferably one year 3. Cardiovascular risk factor modification including smoking cessation DATE: 08/04/15 1013 ASSESSMENT/PLAN ASSESSMENT/PLAN 1. Chest pain: possibly induced by uncontrolled HTN. Trops nml EKG no acute changes 2. HTN urgency 3. HLP; statin intolerant 4. CAD; multiple stents in the past with last one 12/2018 at [facility] x1 NICOLE 5. Metabolic syndrome 6. Obesity: gained 55 pounds in the last yr. 7. Tobaccoism 8. CKD3: Cr stable Recommendations 1. outpt MPI..Encouraged to follow up. Consult SS regarding disability. Discussed compliance. ASA/plavix 2. Change metoprolol to coreg and increase dose. HBPM. Could increase lisinopril and add HCTZ 3. Will consider starting on zetia at least. check lipids and TSH. Will need outpt [id number] 4. May DC if TTE is unremarkable 5. Smoking cessation 6. Dietitician consult, DASH diet. wt loss. STEPHON KAPLAN MD 08/14/20 1406: CARDIAC CONSULT ASSESSMENT/PLAN ASSESSMENT/PLAN Patient seen and examined. Agree with MOVIE ACTOR's assessment and plan. Chest pain with mixed features. Myocardial infarction has been ruled out. Agree with increasing beta-blockers for better control. Hold off on adding hydrochlorothiazide secondary to renal insufficiency. Plan outpatient ischemic evaluation in lieu of his history of coronary disease Thank you for your consultation MARYCRUZ LEE APRN Aug 14, 2020 10:12 STEPHON KAPLAN MD Aug 14, 2020 14:06
[2020-08-14] MEDS ORDERED: CARVEDILOL 12.5 MG TABLET. PO SCH (10:15)
[2020-08-14] MEDS ORDERED: hydroCHLOROthiazide 25 MG TABLET PO SCH (10:15)
[2020-08-14] MEDS ORDERED: LISINOPRIL 20 MG TABLET PO SCH (10:15)
[2020-08-14] MEDS ORDERED: amLODIPine BESYLATE 5 MG TABLET PO ONE (10:15)
[2020-08-14 10:21] LABS: CHOLESTEROL/HDL RATIO 10.9
[2020-08-14 11:00] VITALS: BP 159/80
[2020-08-14] MEDS ORDERED: EZETIMIBE 10 MG TABLET. PO SCH (12:00)
--- NOTE | 2020-08-14 13:28 | NUR ---
SW following. Discussed with RN, pt from home ([place] [employer] [employer] [place] room air, cardiac diet. RN and Dr. Daly anticipating possible discharge home today. Med Assist following for self pay status. SW will continue to follow.
[2020-08-14] MEDS ORDERED: GABA300C18 PO (13:57)
[2020-08-14] MEDS ORDERED: AMLO10TA8 PO (13:57)
[2020-08-14] MEDS ORDERED: CARV12.511 PO (13:57)
[2020-08-14] MEDS ORDERED: CELE100C PO (13:57)
[2020-08-14] MEDS ORDERED: NITR0.4T22 SL (14:00)
--- NOTE | 2020-08-14 14:03 | PDOC3 ---
Discharge Summary Visit Information Date of Admission: Aug 13, 2020 Date of Discharge: Aug 14, 2020 Admitting Diagnosis: Chset pain Final Diagnosis Problems Medical Problems: (1) Chest pain Status: Acute (2) CKD (chronic kidney disease) Status: Acute Brief Hospital Course Allergies Allergies Coded Allergies Type Severity Reaction Last Updated Verified amitriptyline Allergy Severe Anaphylaxis 09/10/14 Yes meperidine Allergy Severe 09/10/14 Yes morphine Allergy Severe Swelling 09/10/14 Yes venom-honey bee Allergy Severe Anaphylaxis 09/10/14 Yes Yxtlhnj-Cnj-Msc Reductase Inhibitor Allergy Unknown 08/13/20 Yes Vital Signs Vital Signs Date Time Temp Pulse Resp B/P (MAP) Pulse Ox O2 Delivery O2 Flow Rate FiO2 08/14/20 12:36 22 97 Room Air 3.0 08/14/20 11:00 97.7 63 159/80 (106) 97.7 Lab Results Laboratory Tests Test 08/13/20 16:10 08/14/20 01:45 White Blood Count 3.8 x10^3/uL (4.0-11.0) Red Blood Count 3.69 x10^6/uL (4.30-5.70) Hemoglobin 12.1 g/dL (13.0-17.5) Hematocrit 35.5 % (39.0-53.0) Mean Corpuscular Volume 96 fL (79-100) Mean Corpuscular Hemoglobin 33 pg (25-35) Mean Corpuscular Hemoglobin Concent 34 g/dL (31-37) Red Cell Distribution Width 15.6 % (11.5-14.5) Platelet Count 148 x10^3/uL (140-400) Neutrophils (%) (Auto) 52 % (31-73) Lymphocytes (%) (Auto) 33 % (24-48) Monocytes (%) (Auto) 10 % (0-9) Eosinophils (%) (Auto) 5 % (0-3) Basophils (%) (Auto) 0 % (0-3) Neutrophils # (Auto) 2.0 x10^3/uL (1.8-7.7) Lymphocytes # (Auto) 1.2 x10^3/uL (1.0-4.8) Monocytes # (Auto) 0.4 x10^3/uL (0.0-1.1) Eosinophils # (Auto) 0.2 x10^3/uL (0.0-0.7) Basophils # (Auto) 0.0 x10^3/uL (0.0-0.2) Sodium Level 137 mmol/L (136-145) Potassium Level 4.6 mmol/L (3.5-5.1) Chloride Level 102 mmol/L (98-107) Carbon Dioxide Level 28 mmol/L (21-32) Anion Gap 7 (6-14) Blood Urea Nitrogen 17 mg/dL (8-26) Creatinine 1.5 mg/dL (0.7-1.3) Estimated GFR (Cockcroft-Gault) 49.3 BUN/Creatinine Ratio 11 (6-20) Glucose Level 99 mg/dL (70-99) Calcium Level 8.5 mg/dL (8.5-10.1) Magnesium Level 1.7 mg/dL (1.8-2.4) Total Bilirubin 0.4 mg/dL (0.2-1.0) Aspartate Amino Transf (AST/SGOT) 30 U/L (15-37) Alanine Aminotransferase (ALT/SGPT) 43 U/L (16-63) Alkaline Phosphatase 78 U/L (46-116) Troponin I Quantitative < 0.017 ng/mL (0.000-0.055) < 0.017 ng/mL (0.000-0.055) KL-Vzz-C-Type Natriuretic Peptide 290 pg/mL (0-124) Total Protein 6.4 g/dL (6.4-8.2) Albumin 3.6 g/dL (3.4-5.0) Albumin/Globulin Ratio 1.3 (1.0-1.7) Triglycerides Level 468 mg/dL (0-150) Cholesterol Level 317 mg/dL (0-200) LDL Cholesterol, Calculated 194 mg/dL (0-100) VLDL Cholesterol, Calculated 94 mg/dL (0-40) Non-HDL Cholesterol Calculated 288 mg/dL (0-129) HDL Cholesterol 29 mg/dL (40-60) Cholesterol/HDL Ratio 10.9 Thyroid Stimulating Hormone (TSH) 5.183 uIU/mL (0.358-3.74) Laboratory Tests Test 08/13/20 16:10 08/14/20 01:45 White Blood Count 3.8 x10^3/uL (4.0-11.0) Red Blood Count 3.69 x10^6/uL (4.30-5.70) Hemoglobin 12.1 g/dL (13.0-17.5) Hematocrit 35.5 % (39.0-53.0) Mean Corpuscular Volume 96 fL (79-100) Mean Corpuscular Hemoglobin 33 pg (25-35) Mean Corpuscular Hemoglobin Concent 34 g/dL (31-37) Red Cell Distribution Width 15.6 % (11.5-14.5) Platelet Count 148 x10^3/uL (140-400) Neutrophils (%) (Auto) 52 % (31-73) Lymphocytes (%) (Auto) 33 % (24-48) Monocytes (%) (Auto) 10 % (0-9) Eosinophils (%) (Auto) 5 % (0-3) Basophils (%) (Auto) 0 % (0-3) Neutrophils # (Auto) 2.0 x10^3/uL (1.8-7.7) Lymphocytes # (Auto) 1.2 x10^3/uL (1.0-4.8) Monocytes # (Auto) 0.4 x10^3/uL (0.0-1.1) Eosinophils # (Auto) 0.2 x10^3/uL (0.0-0.7) Basophils # (Auto) 0.0 x10^3/uL (0.0-0.2) Sodium Level 137 mmol/L (136-145) Potassium Level 4.6 mmol/L (3.5-5.1) Chloride Level 102 mmol/L (98-107) Carbon Dioxide Level 28 mmol/L (21-32) Anion Gap 7 (6-14) Blood Urea Nitrogen 17 mg/dL (8-26) Creatinine 1.5 mg/dL (0.7-1.3) Estimated GFR (Cockcroft-Gault) 49.3 BUN/Creatinine Ratio 11 (6-20) Glucose Level 99 mg/dL (70-99) Calcium Level 8.5 mg/dL (8.5-10.1) Magnesium Level 1.7 mg/dL (1.8-2.4) Total Bilirubin 0.4 mg/dL (0.2-1.0) Aspartate Amino Transf (AST/SGOT) 30 U/L (15-37) Alanine Aminotransferase (ALT/SGPT) 43 U/L (16-63) Alkaline Phosphatase 78 U/L (46-116) Troponin I Quantitative < 0.017 ng/mL (0.000-0.055) < 0.017 ng/mL (0.000-0.055) MW-Wgc-E-Type Natriuretic Peptide 290 pg/mL (0-124) Total Protein 6.4 g/dL (6.4-8.2) Albumin 3.6 g/dL (3.4-5.0) Albumin/Globulin Ratio 1.3 (1.0-1.7) Triglycerides Level 468 mg/dL (0-150) Cholesterol Level 317 mg/dL (0-200) LDL Cholesterol, Calculated 194 mg/dL (0-100) VLDL Cholesterol, Calculated 94 mg/dL (0-40) Non-HDL Cholesterol Calculated 288 mg/dL (0-129) HDL Cholesterol 29 mg/dL (40-60) Cholesterol/HDL Ratio 10.9 Thyroid Stimulating Hormone (TSH) 5.183 uIU/mL (0.358-3.74) Brief Hospital Course Mr Jhaveri is a 50yo M w PMHx bilateral shoulder arthritis, CAD s/p NICOLE x4, chronic back pain, HTN, smoker who presents to ED with multiple complaints. He notes a cool "Hose clamping feeling" pressure in his chest for the past week. It does not radiate, rated 4/10, constant with associated headache and nausea an d lower extremity edema and bilateral foot pain. He also notes BP 178/101 every day this week, just had his lisinopril and metoprolol and plavix refilled. He also c/o depressed mood over the of his October 2019 and subsequent loss of his home, he lives in a trailer on his nephew's property. He additionally complains of weight gain from 220# to 275# over the past 10 meme hs and is drinking more heavily and continues to smoke. Patient states he has had multiple heart attacks that usually present like this early on. Does not take aspirin of cholesterol medications, notes statin intolerance previously. No history of DVT or PE. Did not take any nitro. EKG Sinus rhythm at 60 bpm, left axis deviation, normal intervals, T wave inversion lead III, no ST elevations or ST depressions, nonpathologic Q waves in 1 and aVL CXR clear Cath report reviewed from 2015-single vessel cad. EKG with no active ischemia, troponin unremarkable. Labs with Cr 1.5, troponin 0, BNP 290. Admitted for further care Troponins trended downward. His headache and chest symptoms improved slightly with blood pressure systolic in the 140s. Amlodipine and carvedilol on discharge. Has outpatient follow-up with cardiology as he has disability approval as of 07/28/2020 and will have insurance soon. Will have outpatient stress testing Problem list: Chest pain - negative EKG, negative troponins, telemetry. Consult cardiology Hypertensive urgency - with chest pain, IV prn hydralazine, metoprolol. Hold lisinopril for VIVEK. Change to coreg and amlodipine. Stop aleve/ibuprofen CAD - s/p PCI/NICOLE RCA 2013, PCI/NICOLE to LAD and PTCA to Dx 03/2015, then 07/2015 PCI/NICOLE to RCA. Cont plavix, asa, BB, cannot tolerate statin. Smoking cessation counseled Ischemic cardiomyopathy - will likely need repeat TTE HLD - statin intolerant. He would benefit from a PCSK-9 inhibitor Severe left shoulder pain - with torn biceps tendon Right shoulder pain - with likely rotator cuff tear and OA, will give topical voltaren, low dose celebrex with caution VIVEK - Cr at 1.5, advised to stop NSAIDs. This likely vasomotor nephropathy, will hydrate, hold lisinopril GERD - Cont protonix Tobaccoism: continue to smoke tobacco. Smoking cessation emphasized Greater than 30 minutes spent on d/c home Discharge Information Condition at Discharge: Improved Follow Up: Weeks (1) Disposition/Orders: D/C to Home Scheduled Amlodipine Besylate (Amlodipine Besylate) 10 Mg Tablet, 10 MG PO DAILY for HTN for 90 Days, #90 Ref 1 Prescribed by: CANDY BARRY MD on 08/14/20 1357 Aspirin (Ecotrin) 325 Mg Tablet.dr, 325 MG PO DAILYWBK for Coronary artery disease, #30 Ref 3 Prescribed by: FISH MACE on 08/01/15 1006 Last Action: Continued on 08/13/20 191 by CANDY BARRY MD Carvedilol (Carvedilol ) 12.5 Mg Tablet, 12.5 MG PO BIDWMEALS for CAD/HTN for 90 Days, #180 Ref 1 Prescribed by: CANDY BARRY MD on 08/14/20 1357 Celecoxib (Celebrex) 100 Mg Capsule, 1 CAP PO DAILY for Osteoarthritis for 90 Days, #90 Ref 0 Prescribed by: CANDY BARRY MD on 08/14/20 1357 Clopidogrel Bisulfate (Plavix) 75 Mg Tablet, 75 MG PO DAILYWBKFT for Cardiac stent, #30 Ref 3 Prescribed by: FISH MACE on 08/01/15 1006 Last Action: Continued on 08/13/201914 by CANDY BARRY MD Fenofibrate,Micronized (Fenofibrate) 134 Mg Capsule, 67 CAP PO DAILY, #90 Ref 3 (Reported) Entered as Reported by: CINTHYA LUNSFORD on 07/20/16 0639 Gabapentin (Gabapentin ) 300 Mg Capsule, 1 CAP PO TID for Neuropathic pain for 90 Days, #270 Ref 1 Prescribed by: CANDY BARRY MD on 08/14/20 1357 Scheduled PRN Bisacodyl (Dulcolax) 5 Mg Tablet.dr, 1 TAB PO BID PRN for CONSTIPATION, #2 (Reported) Entered as Reported by: Awa Morales on 07/31/15 0032 Last Action: Continued on 08/13/201914 by CANDY BARRY MD Nitroglycerin (NITROGLYCERIN SubLingual) 0.4 Mg Tab.subl, 0.4 MG SL PRN Q5MIN PRN for CHEST PAIN for 30 Days, #9 Ref 5 Prescribed by: CANDY BARRY MD on 08/14/20 1400 Discontinued Medications Alprazolam (Xanax) 0.25 Mg Tablet, 1 TAB PO DAILY for ANXIETY, #20 Ref 0 Prescribed by: FISH MACE on 08/01/15 1201 Atorvastatin Calcium (Lipitor) 40 Mg Tablet, 40 MG PO QHS, #30 Ref 3 Prescribed by: FISH MACE on 08/01/15 1006 Last Action: HELD on 08/13/201913 by CANDY BARRY MD Cyclobenzaprine Hcl (Cyclobenzaprine Hcl) 10 Mg Tablet, 1 TAB PO TID PRN for PAIN, #30 Prescribed by: BASIA DOMINIQUE APRN on 03/04/17 2213 Hydrocodone/Apap 5-325 ([place] 5-325 Tablet) 1 Each Tablet, 1 TAB PO PRN Q6HRS PRN for PAIN, #20 Prescribed by: BASIA DOMINIQUE APRN on 03/04/172212 Last Action: Continued on 08/13/201914 by CANDY BARRY MD Lisinopril (Lisinopril) 10 Mg Tablet, 10 MG PO DAILY for FOR HYPERTENSION, #30 Ref 0 (Reported) Entered as Reported by: CINTHYA LUNSFORD on 07/20/16 0627 Oxycodone/Apap 10-325 (Percocet 10-325 Mg Tablet ) 1 Each Tablet, 1 TAB PO QID, #120 (Reported) Entered as Reported by: Awa Morales on 07/31/15 0024 Oxycodone/Apap 10-325 (Percocet 10-325 Mg Tablet ) 1 Each Tablet, 1 TAB PO Q4- 6HRS, #30 Ref 0 Prescribed by: FISH MACE on 08/01/15 1201 Prednisone (Prednisone) 20 Mg Tablet, 40 MG PO DAILY, #10 Prescribed by: BASIA DOMINIQUE APRN on 03/04/173 [Metoprolol Tartrate] 25 MG TABLET, 12.5 MG PO BID, #60 Ref 6 Prescribed by: STEPHON KAPLAN on 09/12/14 1055 Last Action: Converted on 08/13/201914 by CANDY BARRY MD Justicifation of Admission Dx: Justifications for Admission: Justification of Admission Dx: Yes Angina: Symp at Rest CANDY BARRY MD Aug 14, 2020 14:03
[2020-08-14] MEDS ORDERED: PROCHLORPERAZINE 10 MG/2 ML VIAL. IV ONE (14:45)
--- NOTE | 2020-08-14 14:53 | CARD ---
MR#: [id number] Date of Study: 08/14/2020 Ordering Physician: MARYCRUZ LEE, Referring Physician: MARYCRUZ LEE Tech: Jocelyn Shoemaker [facility] APPROVED REPORT EXAM: Two-dimensional and M-mode echocardiogram with Doppler and color Doppler. Other Information Quality : Good INDICATION Cardiac Disease: CAD Chest Pain 2D DIMENSIONS RVDd3.1 (2.9-3.5cm)Left Atrium(2D)4.3 (1.6-4.0cm) IVSd1.1 (0.7-1.1cm)Aortic Root(2D)3.4 (2.0-3.7cm) LVDd5.0 (3.9-5.9cm)LVOT Diameter2.2 (1.8-2.4cm) PWd1.1 (0.7-1.1cm)LVDs2.9 (2.5-4.0cm) FS (%) 30.0 %SV86.6 ml LVEF(%)60.0 (>50%) Aortic Valve AoV Peak Jonatan.124.4cm/sAoV VTI25.7cm AO Peak GR.6.2mmHgLVOT VTI 24.68cm AO Mean GR.4mmHgAVA (VTI)3.50cm2 Mitral Valve MV E Axpyqmwg39.1cm/sMV DECEL EBAB111fd MV A Xsodwliz67.6cm/sE/A Ratio1.5 TDI Lateral E' P. V2.32cm/sMedial E' P. V7.21cm/s E/Lateral E'35.0E/Medial E'11.2 Pulmonary Vein S1 Odkbixrn86.6cm/sS2 Nalxaqda66.06cm/s D2 Xkejmzxj65.1cm/s LEFT VENTRICLE The left ventricle is normal size. There is normal left ventricular wall thickness. The left ventricu lar systolic function is normal. The Ejection Fraction is 55-60%. There is normal LV segmental wall m otion. The left ventricular diastolic function and filling is normal for age. RIGHT VENTRICLE The right ventricle is normal size. The right ventricular systolic function is normal. ATRIA The left atrium is mildly dilated. The right atrium size is normal. The interatrial septum is intact with no evidence for an atrial septal defect or patent foramen ovale as noted on 2-D or Doppler imagi ng. AORTIC VALVE The aortic valve is normal in structure and function. Doppler and Color Flow revealed no significant aortic regurgitation. There is no significant aortic valvular stenosis. MITRAL VALVE The mitral valve is normal in structure and function. There is no evidence of mitral valve prolapse. There is no mitral valve stenosis. Doppler and Color Flow revealed no mitral valve regurgitation note d. TRICUSPID VALVE The tricuspid valve is normal in structure and function. Doppler and Color Flow revealed no tricuspid valve regurgitation noted. There is no tricuspid valve stenosis. PULMONIC VALVE The pulmonic valve is not well visualized. Doppler and Color Flow revealed no pulmonic valvular regur gitation. There is no pulmonic valvular stenosis. GREAT VESSELS The aortic root is normal in size. The ascending aorta is mildly dilated at 3.5 cm. The IVC was not v isualized. PERICARDIAL EFFUSION There is no evidence of significant pericardial effusion. Critical Notification Critical Value: No <Conclusion> The left ventricular systolic function is normal. The Ejection Fraction is 55-60%. There is normal LV segmental wall motion. There is no evidence of significant pericardial effusion. Signed by : Dave Atkins, Electronically Approved : 08/14/2020 14:53:26
--- NOTE | 2020-08-14 16:00 | NUR ---
Discharge Note: [facility] Discharge instructions and discharge home medications reviewed with Patient and a copy given. All questions have been answered and understanding verbalized. Pt discharged with all belongings.
[2020-08-15] MEDS ORDERED: ASPIRIN ENTERIC COATED 81 MG TABLET.DR. PO SCH (08:00)
== END 2020-08-14 16:00 | disposition home or self-care (01) ==
LOC: ER 15:27 → 1 WEST ICU 18:00 → INTOOBSV 18:00
PROVIDERS: ADMIT Internal Medicine; ATTEND Internal Medicine
DX: R07.89 Other chest pain (principal); I16.0 Hypertensive urgency; I12.9 Hypertensive chronic kidney disease with stage 1 through stage 4 chronic kidney disease, or unspecified chronic kidney disease; N18.9 Chronic kidney disease, unspecified; I25.10 Atherosclerotic heart disease of native coronary artery without angina pectoris; I25.5 Ischemic cardiomyopathy; N17.9 Acute kidney failure, unspecified; I25.2 Old myocardial infarction; E78.5 Hyperlipidemia, unspecified; M25.512 Pain in left shoulder; M25.511 Pain in right shoulder; K21.9 Gastro-esophageal reflux disease without esophagitis; F17.210 Nicotine dependence, cigarettes, uncomplicated; F41.9 Anxiety disorder, unspecified; M19.90 Unspecified osteoarthritis, unspecified site; G89.29 Other chronic pain; M54.9 Dorsalgia, unspecified; Z95.5 Presence of coronary angioplasty implant and graft; Z79.02 Long term (current) use of antithrombotics/antiplatelets; Z98.890 Other specified postprocedural states; Z79.82 Long term (current) use of aspirin; Z23 Encounter for immunization
CPT/HCPCS: 36415; 71045; 80053; 80061; 83735; 83880; 84443; 84484; 85025; 90471; 90686; 93005; 93306; 96365; 96375; 96376; 99285; G0378; J0360; J0780; J3475; G0379